=== PATIENT | male | born 1940 | race Caucasian/White ===

== ENCOUNTER → 2017-12-29 | Outpatient (CLI) | payer MEDICARE ==
[~2017-12-29] MED LIST: ACAR50TA PO; ALPR1TAB3 PO; AMLO5TAB22 PO; AMMO12CR10 TOP; APIX5TAB PO; AZEL0.05 NASAL; CARB25TA PO; CITA20TA4 PO; DAPA1TAB2; DAPA1TAB2 PO; DIGO0.12 PO; DIPH2%T PO; DOK100TA PO; GLIP5 PO; GLUC1000 PO; IRON325T2 PO; LISI-360 PO; METF500 PO; METO100T9 PO; PENI250T59 PO; PNEU13P IM; POLY119S PO; SIMV40 PO; SITA100 PO; SSD1CRE EX; SUBO8MIS SL; TRAZ50TA4 PO; TRUETEST STRIPS
--- NOTE | 2017-12-29 14:34 | RADRPT ---
EXAM DATE/TIME: 12/29/2017 14:07 [place] COMPARISON: No previous studies available for comparison. INDICATIONS : Dysphagia. FLUORO TIME: 2.4 minutes IMAGE COUNT: 3 CONTRAST: Dose as prescribed by speech pathologist. MEDICAL HISTORY : Stroke. SURGICAL HISTORY : None. ENCOUNTER: Initial ACUITY: >1 year PAIN SCORE: 0/10 LOCATION: esophagus FINDINGS: A modified barium swallow was performed with speech pathology. Patient was given a variety of liquids to swallow. Abnormal. Episodes of aspiration noted during swallowing of thin barium, thick barium, and barium fo ssa. For a full detailed report, see report by the speech pathologist. CONCLUSION: Aspiration is observed with multiple different consistencies of barium. Odell Alvarenga MD on December 29, 2017 at 14:29 Board Certified Radiologist. This report was verified electronically.
== END ==
LOC: HRAD 12-22 14:34
DX: R13.12 Dysphagia, oropharyngeal phase (principal)
CPT/HCPCS: 74230; 92611; G8996; G8997; G8998

== ENCOUNTER 2018-09-10 17:45 | Observation (INO) ==
[2018-09-10 18:55] LABS: Baso % (Auto) 0.5 % (0.0-2.0); Eos # (Auto) 0.1 th/mm3 (0.0-0.4); Eos % (Auto) 1.9 % (0.0-4.0); Hematocrit 33.1 % (39.0-51.0); Hemoglobin 11.5 gm/dL (13.0-17.0); Lymph # (Auto) 1.4 th/mm3 (1.0-4.8); Lymph % (Auto) 18.3 % (9.0-44.0); Mean Corpuscular HGB Conc 34.7 % (32.0-36.0); Mean Corpuscular Hemoglobin 32.1 pg (27.0-34.0); Mean Corpuscular Volume 92.5 fL (80.0-100.0); Mean Platelet Volume 8.9 fL (7.0-11.0); Mono # (Auto) 0.8 th/mm3 (0.0-0.9); Neut # (Auto) 5.2 th/mm3 (1.8-7.7); Neut % (Auto) 68.3 % (16.0-70.0); Platelet Count 153 th/mm3 (150-450); Red Blood Count 3.58 mil/mm3 (4.50-5.90); Red Cell Distribution Width 14.5 % (11.6-17.2); White Blood Count 7.6 th/mm3 (4.0-11.0)
--- NOTE | 2018-09-10 18:59 | XR ---
EXAM DATE: 09/10/2018 6:39 PM EST AGE/SEX: 78 years / Male INDICATIONS: Short of breath. CLINICAL DATA: This is the patient's initial encounter. Patient reports that signs and symptoms have been present for 1 day and indicates a pain score of 0/10. MEDICAL/SURGICAL HISTORY: Stroke. Non-responsive. COMPARISON: [facility], CHEST 1V SINGLE AP, 08/24/2018. . FINDINGS: A single AP view of the chest demonstrates the lungs to be symmetrically aerated without evidence of mass, infiltrate or effusion. The cardiomediastinal contours are unremarkable. Osseous structures a re intact. CONCLUSION: No evidence of acute cardiopulmonary disease. Electronically signed by: Donavan Rosales MD 09/10/2018 6:58 PM EST
[2018-09-10 19:07] LABS: Bilirubin,Urine Negative (Negative); Clarity,Urine Clear (Clear); Color,Urine Straw (Yellw/Straw); Glucose,Urine (UA) Negative (Negative); Leukocyte Esterase,Urine Negative (Negative); Nitrite,Urine Negative (Negative); Specific Gravity,Urine 1.006 (1.002-1.035); Squamous Epithelial Cell,Urine <1 /hpf (0-5)
[2018-09-10 19:14] LABS: Albumin 3.3 g/dL (3.4-5.0); Anion Gap 5 meq/L (5-15); Aspartate Aminotransferase 17 U/L (15-37); Blood Urea Nitrogen 29 mg/dL (7-18); Calcium 8.9 mg/dL (8.5-10.1); Carbon Dioxide 34.9 meq/L (21.0-32.0); Chloride 97 meq/L (98-107); Glomerular Filtration Rate 84 mL/min (>89); Glucose,Random 124 mg/dL (74-106); Potassium 3.6 meq/L (3.5-5.1); Sodium 137 meq/L (136-145)
--- NOTE | 2018-09-10 19:15 | ED ---
HPI General Chief Complaint: Respiratory Symptoms Stated Complaint: Resp Time Seen by Provider: 09/10/18 18:12 Source: EMS Mode of arrival: EMS Limitations: other (Advanced Alzheimer's) History of Present Illness 78-year-old male with PMH of HTN, HLD, DM T2, insulin-dependent, A. fib, on Eliquis, advanced Parkinson's, recent history of pneumonia resents to the ED from his [facility] for evaluation of worsening pulmonary function. On arrival the patient is alert and oriented x2. He states that he does not normally require oxygen. He denies headaches, dizziness, chest pain, palpitations, shortness of breath, cough, abdominal pain, nausea, vomiting. The patient has a G-tube and has a history of esophageal dysphagia, is not to receive any food by mouth. Per EMS report there was concern that the patient was given a breakfast tray. Per the EMS report the provider at the [facility] was concerned for aspiration pneumonia. Patient was recently hospitalized with PNA requiring intubation. Related Data Home Medications Medication Instructions Recorded Confirmed Lactobacillus rhamnosus GG 1 cap FEEDING TUBE DAILY 09/10/18 09/10/18 [Culturelle] acetaminophen [Tylenol] 650 mg FEEDING TUBE Q4H PRN 09/10/18 09/10/18 buprenorphine-naloxone [Suboxone] 1 film BUCCAL Q12HR 09/10/18 09/10/18 carbidopa-levodopa 2 tab G-TUBE Q12HR 09/10/18 09/10/18 insulin aspart U-100 [Novolog 0 - 10 unit SUBCUT ACHS 09/10/18 09/10/18 U-100 Insulin aspart] Previous Rx's Medication Instructions Recorded amlodipine [Norvasc] 5 mg FEEDING TUBE DAILY #30 tab 08/29/18 apixaban 5 mg FEEDING TUBE Q12HR #60 tab 08/29/18 atorvastatin 20 mg FEEDING TUBE HS #30 tab 08/29/18 chlorhexidine gluconate 10 ml OROPHARYNG TID 30 Days ml 08/29/18 digoxin [Lanoxin] 0.125 mg FEEDING TUBE DAILY #30 tab 08/29/18 diphenhydramine HCl 50 mg G-TUBE HS PRN 30 Days ml 08/29/18 famotidine 20 mg FEEDING TUBE BID #60 tab 08/29/18 guaifenesin 200 mg G-TUBE Q6HR 30 Days ml 10/24/18 guar gum [Nutrisource Fiber] 1 packet G-TUBE BID #60 ea 08/29/18 insulin detemir U-100 [Levemir 45 unit SUBCUT HS 30 Days #13.5 ml 08/29/18 U-100 Insulin] insulin detemir U-100 [Levemir 50 unit SUBCUT DAILY@09 30 Days 08/29/18 U-100 Insulin] #15 ml ipratropium-albuterol 1 amp NEB Q2HR NEB PRN #10 amp 08/29/18 ipratropium-albuterol 3 ml INHALATION QID #120 amp 08/29/18 metoprolol tartrate 50 mg FEEDING TUBE Q12HR #60 tab 08/29/18 Allergies Allergy/AdvReac Type Severity Reaction Status Date / Time carisoprodol Allergy Severe LIGHT Verified 09/10/18 18:07 HEADEDNESS cyclobenzaprine AdvReac Confusion Verified 09/10/18 18:07 [From Flexeril] Review of Systems ROS: all other systems reviewed are negative [facility] Social History Social History Substance History: No History of Abuse Second Hand Smoke Exposure: No Smoking Status: Unknown if ever smoked Tobacco Type: Cigarettes Packs Per Day: 1 Cigarettes Per Day: 20.0 Years Smoked: 12 Pack-Years: 12.00 Number of Pack-Years (if former smoker): 12 How Often Do You Have a Drink Containing Alcohol: Unable to Obtain Hx Recent Travel: No Recent Travel in [facility] within the Last 8 Weeks: No Recent Out of Country Travel within the Last 8 Weeks: No Immunization History Tetanus Immunization: Unsure Exam Narrative Exam Narrative: GENERAL: Thin white male, eyes closed, Parkinsonian affect, arouses to voice. SKIN: Focused skin assessment warm/dry. HEAD: Atraumatic. Normocephalic. EYES: Pupils equal and round. No scleral icterus. No injection or drainage. ENT: No nasal bleeding or discharge. Mucous membranes pink and moist. NECK: Trachea midline. No JVD. CARDIOVASCULAR: Irregularly irregular rate and rhythm. No murmur appreciated. RESPIRATORY: Poor respiratory effort. Diminished sounds in the left lung. Right lung clear to auscultation. GASTROINTESTINAL: Abdomen soft, non-tender, nondistended. Hepatic and splenic margins not palpable. G-tube in place, well-healed and without signs of infection. MUSCULOSKELETAL: No obvious deformities. No clubbing. No cyanosis. No edema. NEUROLOGICAL: Awake. Answers questions appropriately. No motion of the extremities. PSYCHIATRIC: cooperative, calm Course Initial Documented Vital Signs Temperature 98.4 F 09/10/18 18:08 Pulse Rate 83 09/10/18 18:08 Respiratory Rate 16 09/10/18 18:08 Blood Pressure 139/67 09/10/18 18:08 Pulse Oximetry 93 L 09/10/18 18:08 Last Documented Vital Signs Temperature 98.4 F 09/10/18 18:08 Pulse Rate 82 09/10/18 19:47 Respiratory Rate 18 09/10/18 19:47 Blood Pressure 117/63 09/10/18 19:47 Pulse Oximetry 96 09/10/18 19:47 Medical Decision Making ROEL Attestation ROEL supervised visit: Yes Attestation: I, Dr. Flannery, have reviewed the advance practice practitioner's documentation and am in agreement, met with the patient face to face, made the diagnosis, and the medical decision making was done by me. The patient was initially evaluated by Maritza, the ROEL. Please see their complete history and physical. *My assessment and Findings: The patient presents with shortness of breath. Patient has a history of aspiration pneumonia with recent admission. According to the patient's family member at the bedside, the patient was fed by a EMPLOYMENT SERVICE SPECIALIST on Monday morning by mouth. The patient reportedly is only receiving nutrition through a G-tube, however this patient's EMPLOYMENT SERVICE SPECIALIST was not aware. The patient received a whole breakfast of eggs prior to the family being made aware that the patient was being fed orally. Patient since then has had increasing shortness of breath. The patient's examination is remarkable for decreased air movement in bilateral lung botello with diminished breath sounds bilaterally. The patient is noted to be in A. fib that is generally rate controlled, however with brief episodes at the bedside of a heart rate above 100 but less than 110. The patient is noted to have swelling of the left leg compared to the right which the family reports that they are unaware of being present previously. The patient is anticoagulated on Eliquis. During the course of the patient's emergency department visit, the patient's history, examination, and differential diagnosis were reviewed with the patient. The patient was placed on a cardiac cath technologist with oximetry and frequent blood pressure monitoring. The patient had IV access obtained and blood work sent for analysis. The patient was placed on supplemental nasal cannula oxygen. The patient's diagnostic studies were reviewed and remarkable for a white count of 7.6, hemoglobin 11.5, platelets 153 with 11 monocytes chloride of 97, bicarb 34.9, BUN 29, GFR of 84, glucose 124, ALT 11. Troponin I is less than 0.02. Albumin 3.3 urinalysis shows no acute abnormality. The patient's chest x-ray was read as showing no evidence of acute cardiopulmonary disease. BNP within normal limits. Ultrasound reveals a left lower extremity DVT. The patient's results were discussed with the patient, including the plan of care. I explained that further testing and/ or monitoring is indicated based on the patient's history, examination, and/ or laboratory findings. Therefore, I recommended admission for additional evaluation. The patient expressed understanding and was agreeable with this plan. The patient was admitted to the hospital in stable condition and sent to a bed under the care of [facility] service. MDM Narrative Medical decision making narrative: 78-year-old male with PMH of advanced Parkinson's, hypertension, DM, A. fib, esophageal dysphasia presents to the ED for evaluation of decreased respiratory functioning over the last 24 hours. Apparently a EMPLOYMENT SERVICE SPECIALIST at his [facility] fed him a dinner though he is restricted to tube feeding. The practitioner at the [facility] noticed the patient's declining respiratory function and sent him for evaluation. On exam O2 sats are 92% on room air, improved by 2 L nasal cannula. The O respiratory effort is weak and the left side lung sounds are greatly diminished as compared to the right. Chest x-ray with no evidence of pneumonia. Patient's family reports history of hospitalization secondary to aspiration pneumonia requiring intubation. Plan to observe the patient. Family is agreeable. I spoke with Dr. Iglesias who agrees to accept the patient to the medicine service. Please see medicine notes for disposition. Medical Screen Exam Complete: Yes Emergency Medical Condition: Yes Differential Diagnosis Differential Diagnosis: Aspiration versus pneumonia versus hypoxia versus A. fib versus other Lab Data Result diagrams: 09/10/18 18:20 09/10/18 18:20 Lab Results 09/10/18 09/10/18 09/10/18 Range/Units 18:20 18:20 18:20 WBC 7.6 (4.0-11.0) th/mm3 RBC 3.58 L (4.50-5.90) mil/mm3 Hgb 11.5 L (13.0-17.0) gm/dL Hct 33.1 L (39.0-51.0) % MCV 92.5 (80.0-100.0) fL MCH 32.1 (27.0-34.0) pg MCHC 34.7 (32.0-36.0) % RDW 14.5 (11.6-17.2) % Plt Count 153 (150-450) th/mm3 MPV 8.9 (7.0-11.0) fL Neut % (Auto) 68.3 (16.0-70.0) % Lymph % (Auto) 18.3 (9.0-44.0) % [place] % (Auto) 11.0 H (0.0-8.0) % Eos % (Auto) 1.9 (0.0-4.0) % Baso % (Auto) 0.5 (0.0-2.0) % Neut # (Auto) 5.2 (1.8-7.7) th/mm3 Lymph # (Auto) 1.4 (1.0-4.8) th/mm3 [place] # (Auto) 0.8 (0.0-0.9) th/mm3 Eos # (Auto) 0.1 (0.0-0.4) th/mm3 Baso # (Auto) 0.0 (0.0-0.2) th/mm3 WBC Differential . Differential Comment Auto diff final PT (9.8-11.6) sec INR Ratio Sodium 137 (136-145) meq/L Potassium 3.6 (3.5-5.1) meq/L Chloride 97 L (98-107) meq/L Carbon Dioxide 34.9 H (21.0-32.0) meq/L Anion Gap 5 (5-15) meq/L BUN 29 H (7-18) mg/dL Creatinine 0.88 (0.60-1.30) mg/dL Estimated GFR 84 L (>89) mL/min Random Glucose 124 H (74-106) mg/dL Calcium 8.9 (8.5-10.1) mg/dL Total Bilirubin 0.4 (0.2-1.0) mg/dL AST 17 (15-37) U/L ALT 11 L (12-78) U/L Alkaline Phosphatase 78 (45-117) U/L Troponin I Less than 0.02 L (0.02-0.05) ng/mL B-Natriuretic Peptide 72 (0-100) pg/mL Total Protein 8.2 (6.4-8.2) g/dL Albumin 3.3 L (3.4-5.0) g/dL Urine Color (Yellw/Straw) Urine Clarity (Clear) Urine pH (5.0-8.5) Ur Specific [place] (1.002-1.035) Urine Protein (Neg-Trace) mg/dL Urine Glucose (UA) (Negative) mg/dL Urine Ketones (Negative) mg/dL Urine Occult Blood (Negative) Urine Nitrate (Negative) Urine Bilirubin (Negative) Urine Urobilinogen (Less than 2) mg/dL Ur Leukocyte Esterase (Negative) Urine WBC (0-5) /hpf Ur Squamous Epith Cells (0-5) /hpf Micro UA Comment Ur Microscopic Review Urine Culture Comments 09/10/18 09/10/18 Range/Units 18:37 19:44 WBC (4.0-11.0) th/mm3 RBC (4.50-5.90) mil/mm3 Hgb (13.0-17.0) gm/dL Hct (39.0-51.0) % MCV (80.0-100.0) fL MCH (27.0-34.0) pg MCHC (32.0-36.0) % RDW (11.6-17.2) % Plt Count (150-450) th/mm3 MPV (7.0-11.0) fL Neut % (Auto) (16.0-70.0) % Lymph % (Auto) (9.0-44.0) % [place] % (Auto) (0.0-8.0) % Eos % (Auto) (0.0-4.0) % Baso % (Auto) (0.0-2.0) % Neut # (Auto) (1.8-7.7) th/mm3 Lymph # (Auto) (1.0-4.8) th/mm3 [place] # (Auto) (0.0-0.9) th/mm3 Eos # (Auto) (0.0-0.4) th/mm3 Baso # (Auto) (0.0-0.2) th/mm3 WBC Differential Differential Comment PT 10.4 (9.8-11.6) sec INR 1.0 Ratio Sodium (136-145) meq/L Potassium (3.5-5.1) meq/L Chloride (98-107) meq/L Carbon Dioxide (21.0-32.0) meq/L Anion Gap (5-15) meq/L BUN (7-18) mg/dL Creatinine (0.60-1.30) mg/dL Estimated GFR (>89) mL/min Random Glucose (74-106) mg/dL Calcium (8.5-10.1) mg/dL Total Bilirubin (0.2-1.0) mg/dL AST (15-37) U/L ALT (12-78) U/L Alkaline Phosphatase (45-117) U/L Troponin I (0.02-0.05) ng/mL B-Natriuretic Peptide (0-100) pg/mL Total Protein (6.4-8.2) g/dL Albumin (3.4-5.0) g/dL Urine Color Straw (Yellw/Straw) Urine Clarity Clear (Clear) Urine pH 7.0 (5.0-8.5) Ur Specific [place] 1.006 (1.002-1.035) Urine Protein Negative (Neg-Trace) mg/dL Urine Glucose (UA) Negative (Negative) mg/dL Urine Ketones Negative (Negative) mg/dL Urine Occult Blood Negative (Negative) Urine Nitrate Negative (Negative) Urine Bilirubin Negative (Negative) Urine Urobilinogen Less than 2 (Less than 2) mg/dL Ur Leukocyte Esterase Negative (Negative) Urine WBC Less than 1 (0-5) /hpf Ur Squamous Epith Cells <1 (0-5) /hpf Micro UA Comment Culture not ind Ur Microscopic Review Not Reportable Urine Culture Comments Culture not ind Imaging Data Radiologist's impression: Chest X-Ray 09/10/18 18:12 CONCLUSION: No evidence of acute cardiopulmonary disease. Venous Doppler Study 09/10/18 19:33 CONCLUSION: 1. No sonographic evidence for left lower extremity DVT. ECG Data Attestation: I personally reviewed and interpreted this ECG as follows: Interpretation: Rate 82, A. fib. Normal axis. No acute ST changes. Reviewed by Dr. Flannery. Discharge Plan Discharge Disposition Patient Disposition: 30 Still Patient Physicians Team ED Provider: Reina Flannery ED Midlevel Provider: Maritza Gottlieb Primary Care Provider: Usman Albarran Attending Provider: Edgar Iglesias Discharge Interventions Interventions: Vital Signs Last Done: 09/10/18 19:47 Status ED Status: Admitted Observation Patient
[2018-09-10 19:19] LABS: Alanine Aminotransferase 11 U/L (12-78); Alkaline Phosphatase 78 U/L (45-117); Total Protein 8.2 g/dL (6.4-8.2)
[2018-09-10 20:14] LABS: Prothrombin Time 10.4 sec (9.8-11.6)
--- NOTE | 2018-09-10 20:35 | US ---
EXAM DATE: 09/10/2018 8:29 PM EST AGE/SEX: 78 years / Male INDICATIONS: Left leg swelling. CLINICAL DATA: This is the patient's initial encounter. Patient reports that signs and symptoms have been present for 1 day and indicates a pain score of Nonresponsive. MEDICAL/SURGICAL HISTORY: Parkinson's disease. Diabetes mellitus type II. AFib. Hyperlipidemia . HTN. Esophageal dysphagia. Cholecystectomy. Right knee surgery. COMPARISON: No prior exams available for comparison. TECHNIQUE: Venous ultrasound of both lower extremities was performed from the inguinal ligament to t he proximal calf. Real-time, color Doppler and spectral tracing, compression and augmentation techni ques were used. FINDINGS: Normal compression of the deep venous system from the inguinal region to the proximal calf . No echogenic clot is seen. Normal response of the venous system to augmentation and respiration. CONCLUSION: 1. No sonographic evidence for left lower extremity DVT. Electronically signed by: Germán Murrieta MD 09/10/2018 8:33 PM EST
[2018-09-10] MEDS ORDERED: diphenhydrAMINE HCl 12.5 MG/5 ML Elixir UDC G-TUBE PRN (22:14)
[2018-09-10] MEDS ORDERED: Bisacodyl 10 MG Supp RECTAL PRN (22:21)
--- NOTE | 2018-09-10 23:04 | P.HPIM ---
History of Present Illness Service: [facility] Primary Care Physician: Usman Albarran DO History of Present Illness: 78-year-old male with a history of hypertension, diabetes, A. fib on anticoagulation, hyperlipidemia, Parkinson's and esophageal dysphagia was brought to the ED from a rehab facility for evaluation for aspiration pneumonia. Apparently patient only eats via his PEG tube and a ROAD COMMISSIONER at the facility fed him a breakfast tray this morning and the facility was concerned for Aspiration. He was recently admitted for pneumonia in August. Patient is sleepy on examination, ROS is limited due to mentation. He has a lot of bronchial secretions and he doesn't seem to clear them at all. He denies any chest pain. Per the nurse he has not had any complaints. No fevers noted. Review of Systems ROS Unobtainable ROS Unobtainable: unobtainable due to mental condition [facility] Medical History Medical History A-fib (Acute) Esophageal dysphagia (Acute) Hyperlipidemia (Acute) Hypertension (Acute) Insulin dependent type 2 diabetes mellitus (Acute) Parkinsons (Acute) Surgical History Surgical History History of cholecystectomy (Acute) History of right knee surgery (Acute) Family History Family History Father Coronary artery disease Mother Stroke Skin cancer Type 2 diabetes mellitus Social History Social History Substance History: No History of Abuse Second Hand Smoke Exposure: No Smoking Status: Never smoker Tobacco Type: Cigarettes Packs Per Day: 1 Cigarettes Per Day: 20.0 Years Smoked: 12 Pack-Years: 12.00 Number of Pack-Years (if former smoker): 12 How Often Do You Have a Drink Containing Alcohol: Never Hx Recent Travel: No Recent Travel in [place] within the Last 8 Weeks: No Recent Out of Country Travel within the Last 8 Weeks: No Immunization History Tetanus Immunization: Unsure Medications and Allergies Allergies Allergy/AdvReac Type Severity Reaction Status Date / Time carisoprodol Allergy Severe LIGHT Verified 09/10/18 18:07 HEADEDNESS cyclobenzaprine AdvReac Confusion Verified 09/10/18 18:07 [From Flexeril] Home Medications Medication Instructions Recorded Confirmed Type Lactobacillus rhamnosus GG 1 cap FEEDING TUBE DAILY 09/10/18 09/10/18 History [Culturelle] acetaminophen [Tylenol] 650 mg FEEDING TUBE Q4H PRN 09/10/18 09/10/18 History buprenorphine-naloxone [Suboxone] 1 film BUCCAL Q12HR 09/10/18 09/10/18 History carbidopa-levodopa 2 tab G-TUBE Q12HR 09/10/18 09/10/18 History insulin aspart U-100 [Novolog 0 - 10 unit SUBCUT ACHS 09/10/18 09/10/18 History U-100 Insulin aspart] Active Medications: Active Medications Al Hydroxide/Mg Hydroxide (Milk Of Magnesia Liq) 30 ml PO Q12H PRN PRN Reason: Mild Constipation Albuterol (Duoneb Neb ([place])) 1 ampul INH QID NEB MALIA Albuterol (Duoneb Neb (Prn)) 1 ampul NEB Q2HR NEB PRN PRN Reason: Shortness Of Breath/Wheezing Amlodipine Besylate (Norvasc) 5 mg G-TUBE DAILY [facility] Apixaban (Eliquis) 5 mg G-TUBE Q12HR [facility] Atorvastatin Calcium (Lipitor) 20 mg G-TUBE HS [facility] Bisacodyl (Dulcolax Supp) 10 mg RECTAL DAILY PRN PRN Reason: SEVERE CONSITIPATION Carbidopa/Levodopa (Sinemet 25/100 Mg) 2 tab G-TUBE Q12HR [facility] Digoxin (Lanoxin) 125 mcg G-TUBE DAILY [facility] Diphenhydramine HCl (Benadryl Liq) 50 mg G-TUBE HS PRN PRN Reason: Insomnia Famotidine (Pepcid) 20 mg G-TUBE BID [facility] Guaifenesin (Robitussin Liq) 200 mg G-TUBE Q6HR [facility] Sodium Chloride (Ns Inj) 1,000 mls @ 45 mls/hr IV.CONT .[id number] [facility] Insulin Aspart (Novolog Insulin Correctional Sugar Inj) 0 - 10 unit SQ ACHS [facility] Insulin Detemir (Levemir Inj) 45 unit SQ HS [facility] Insulin Detemir (Levemir Inj) 50 unit SQ DAILY@09 [facility] Lactulose (Lactulose Liq) 30 ml PO DAILY PRN PRN Reason: SEVERE CONSITIPATION Metoprolol Tartrate (Lopressor) 50 mg G-TUBE Q12HR [facility] Patient Own Medication (Patient Own Narcotic Med 1) 0 each SL BID MALIA Sennosides (Senokot) 17.2 mg PO Q12H PRN PRN Reason: Moderate Constipation Physical Exam Vital signs: Last Vital Signs Temp 98.4 F 09/10/18 18:08 Pulse 82 09/10/18 19:47 Resp 18 09/10/18 19:47 BP 117/63 09/10/18 19:47 Pulse Ox 96 09/10/18 19:47 Intake & Output 09/08/18 09/09/18 09/10/18 09/11/18 07:59 06:59 06:59 06:59 Weight 77.111 kg Narrative: GENERAL: Sleepy patient, well nourished in no acute distress SKIN: Warm and dry. No open lesions EYES: No scleral icterus. No injection or drainage. NECK: Supple, trachea midline. No JVD or lymphadenopathy. CARDIOVASCULAR: Regular rate and rhythm without murmurs, gallops, or rubs. RESPIRATORY: Bronchial secretions noted in upper airway, bases diminished, no wheezes GASTROINTESTINAL: Abdomen soft, non-tender, nondistended. BS x4 MUSCULOSKELETAL: No cyanosis, or edema. Move all extremities Assessment and Plan Plan 78-year-old male with a history of hypertension, diabetes, A. fib on anticoagulation, hyperlipidemia, Parkinson's and esophageal dysphagia was brought to the ED from a rehab facility for evaluation for aspiration pneumonia. Possible aspiration pneumonia Chest x-ray reviewed and shows no acute abnormalities -Duonebs scheduled -Empirically treat with Unasyn IV, deescalate in am if needed -Suction as needed -IS ordered Hypertension, chronic -Resume home medications medications, monitor vitals Diabetes,Chronic -Accu checks -Cont home medications Afib, chronic -Monitor telemetry -cont home medications Esophageal dysphagia, chronic -Tube feeds via PEG tube DVT prophylaxis: Eliquis
[2018-09-11] MEDS: Metoprolol Tartrate 50 MG Tablet G-TUBE SCH ×3 (00:02→21:14)
[2018-09-11] MEDS: Famotidine 20 MG Tablet G-TUBE SCH ×3 (00:02→21:13)
[2018-09-11] MEDS: Sod Chloride 0.9% Inj 1,000 ML IV.CONT SCH ×2 (00:02→22:29)
[2018-09-11] MEDS ORDERED: Sodium Chloride 0.9% 2 ML Flush PRN IV.FLUSH (00:18)
[2018-09-11] MEDS: Ampicillin/Sulbactam Inj 3 GM in Sodium Chloride 0.9% Inj 100 ML IV.SIG SCH ×5 (00:23→23:35)
--- NOTE | 2018-09-11 05:13 | ECG ---
Date Performed: 09/10/2018 Time Performed: 19:54:38 PTAGE: 78 years EKG: ATRIAL FIBRILLATION MINIMAL ST DEPRESSION ABNORMAL RHYTHM ECG NO PREVIOUS TRACING DOCTOR: Benjie Branch Interpretating Date/Time 09/11/2018 05:11:49
[2018-09-11 09:28] LABS: Baso % (Auto) 0.4 % (0.0-2.0); Eos # (Auto) 0.1 th/mm3 (0.0-0.4); Eos % (Auto) 0.7 % (0.0-4.0); Hematocrit 34.7 % (39.0-51.0); Hemoglobin 11.9 gm/dL (13.0-17.0); Lymph # (Auto) 1.4 th/mm3 (1.0-4.8); Mean Corpuscular HGB Conc 34.3 % (32.0-36.0); Mean Corpuscular Hemoglobin 31.7 pg (27.0-34.0); Mean Corpuscular Volume 92.5 fL (80.0-100.0); Mean Platelet Volume 8.5 fL (7.0-11.0); Mono # (Auto) 0.9 th/mm3 (0.0-0.9); Neut # (Auto) 7.7 th/mm3 (1.8-7.7); Neut % (Auto) 75.9 % (16.0-70.0); Platelet Count 140 th/mm3 (150-450); Red Blood Count 3.76 mil/mm3 (4.50-5.90); Red Cell Distribution Width 14.3 % (11.6-17.2); White Blood Count 10.2 th/mm3 (4.0-11.0)
[2018-09-11] MEDS: Insulin NovoLOG Aspart Correctional Sugar Inj SQ SCH ×4 (09:35→21:15)
[2018-09-11 09:47] LABS: Albumin 3.2 g/dL (3.4-5.0); Anion Gap 9 meq/L (5-15); Aspartate Aminotransferase 21 U/L (15-37); Blood Urea Nitrogen 24 mg/dL (7-18); Calcium 8.8 mg/dL (8.5-10.1); Carbon Dioxide 28.9 meq/L (21.0-32.0); Chloride 101 meq/L (98-107); Glomerular Filtration Rate Greater Than 89 mL/min (>89); Glucose,Random 86 mg/dL (74-106); Sodium 139 meq/L (136-145)
[2018-09-11 09:48] LABS: Alanine Aminotransferase 21 U/L (12-78)
[2018-09-11 09:50] LABS: Alkaline Phosphatase 78 U/L (45-117)
[2018-09-11] MEDS: Digoxin 125 MCG Tablet G-TUBE SCH (11:10)
[2018-09-11] MEDS: amLODIPine 5 MG Tablet G-TUBE SCH (11:10)
[2018-09-11] MEDS: Sodium Chloride 0.9% 2 ML Flush BID IV.FLUSH SCH ×2 (11:11→21:14)
--- NOTE | 2018-09-11 11:12 | P.DIET ---
Nutritional Evaluation Type of nutrition evaluation: initial Nutrition consult regarding: Tube Feeding Nutrition screening: [facility] Subjective Barriers to Nutrition: Swallowing problem Subjective Comments: Pt here from [facility]. Pt has PEG tube in place; no po intake. Objective - Diagnosis Hypoxia, Possible Aspiration Pneumonia - Objective [place] body weight: 75.5 kg (HT 177.8cm from previous admission used here) % IBW: 102 Body Weight Used for Calculations: Actual (77.1 kg) Energy Needs - Lower Range (kCal/kg): 25 Energy Needs - Upper Range (kCal/kg): 30 Lower Limit kCal/kg (kCals): 1,928 Upper Limit kCal/kg (kCals): 2,313 Lower Limit Protein Factor (Grams per Kg): 1.2 Upper Limit Protein Factor (Grams per Kg): 1.6 Lower Protein Needs (Protein): 93 Upper Protein Needs (Protein): 123 Fluid Factor (ml/kg): 30 Estimated Fluid Needs (ml): 2,313 Dietitian Reviewed in Medical Record: Curent medications, Intake & Output, Labs , Medical history, Tube feeding Diet Order: TF'ing Glucerna 1.0 @ 60ml/hr Objective Comments: PMH includes: AFib, Esophageal Dysphagia, PEG tube in place, HLD, HTN, Insulin dependent DM-2, Parkinson's POC Glucose 102 Meds Include: Norvasc, Lipitor, Sinemet, Lanoxin, Pepcid, Metoprolol, Novolog, Levemir Assessment Assessment: Pt is at nutritional risk r/t diagnosis and need for TF'ing for nutritional support. TF'ing, as ordered, will not provide for pt's assessed needs. Rec TF' ing w/Glucerna 1.5 @ goal rate 60ml/hr to offer 2160 kcal, 119g protein and 1093ml free water. Free water flushes per MD. Labs reviewed. Dietitian following. Recommendations: 1. TF'ing, as ordered, will not provide for pt's assessed needs 2. Rec TF'ing w/Glucerna 1.5 @ goal rate 60ml/hr 3. Free water flushes per MD 4. Dietitian following Dietitian to Monitor: Lab values, Electrolytes, Glucose level, Intake & Output, Tube feeding tolerance, Weight change, Medical course
[2018-09-11] MEDS: Insulin Detemir Inj 1,000 UNIT/10 ML Vial SQ SCH (11:47)
--- NOTE | 2018-09-11 12:39 | P.PNIM ---
Subjective Interval history: Patient seen and examined. Stable on room air. He does have some upper airway congestion sounds. Discussed with RN. No new issues. Physical Exam Vital signs: Vital Signs 09/10/18 18:08 09/10/18 18:12 09/10/18 19:47 Temperature 98.4 F Pulse Rate 83 82 Respiratory Rate 16 18 Blood Pressure 139/67 117/63 Pulse Oximetry 93 L 93 L 96 09/10/18 23:27 09/11/18 04:00 09/11/18 05:49 Temperature 98.4 F 98.4 F Pulse Rate 95 H 93 H 98 H Respiratory Rate 18 18 18 Blood Pressure 151/69 H 157/82 H Pulse Oximetry 95 96 95 09/11/18 07:30 09/11/18 08:15 09/11/18 12:15 Temperature 98.0 F Pulse Rate 93 H 102 H 83 Respiratory Rate 20 22 20 Blood Pressure 141/66 H Pulse Oximetry 95 95 09/11/18 12:24 Temperature 98.5 F Pulse Rate 79 Respiratory Rate 18 Blood Pressure 130/66 Pulse Oximetry 91 L Intake & Output 09/10/18 09/11/18 09/11/18 18:59 06:59 18:59 Intake Total 100 / 100 200 / 200 Balance 100 / 100 200 / 200 Weight 77.111 kg 77.1 kg Intake: IV 100 / 100 200 / 200 Unasyn Inj 3 GM In NS Inj 100 100 / 100 200 / 200 ML @ 200 mls/hr IV.SIG Q6H [facility] Rx#:[id number] Narrative: GENERAL: Elderly male in no acute distress. NECK: Supple, trachea midline. No JVD or lymphadenopathy. CARDIOVASCULAR: Regular rate and rhythm without murmurs, gallops, or rubs. RESPIRATORY: Upper airway transmitted rhonchi. Diminished breath sounds at the bases otherwise generally clear to auscultation. No wheezing. GASTROINTESTINAL: Abdomen soft, non-tender, nondistended. PEG in place MUSCULOSKELETAL: No cyanosis, or edema. Move all extremities Results - Labs CBC & Chem 7: 09/11/18 09:05 09/11/18 09:05 Laboratory Results - last 24 hr 09/10/18 09/10/18 09/10/18 18:20 18:20 18:20 WBC 7.6 RBC 3.58 L Hgb 11.5 L Hct 33.1 L MCV 92.5 MCH 32.1 MCHC 34.7 RDW 14.5 Plt Count 153 MPV 8.9 Neut % (Auto) 68.3 Lymph % (Auto) 18.3 [place] % (Auto) 11.0 H Eos % (Auto) 1.9 Baso % (Auto) 0.5 Neut # (Auto) 5.2 Lymph # (Auto) 1.4 [place] # (Auto) 0.8 Eos # (Auto) 0.1 Baso # (Auto) 0.0 WBC Differential . Differential Comment Auto diff final PT INR Sodium 137 Potassium 3.6 Chloride 97 L Carbon Dioxide 34.9 H Anion Gap 5 BUN 29 H Creatinine 0.88 Estimated GFR 84 L POC Glucose Random Glucose 124 H Calcium 8.9 Total Bilirubin 0.4 AST 17 ALT 11 L Alkaline Phosphatase 78 Troponin I Less than 0.02 L B-Natriuretic Peptide 72 Total Protein 8.2 Albumin 3.3 L Urine Color Urine Clarity Urine pH Ur Specific [place] Urine Protein Urine Glucose (UA) Urine Ketones Urine Occult Blood Urine Nitrate Urine Bilirubin Urine Urobilinogen Ur Leukocyte Esterase Urine WBC Ur Squamous Epith Cells Micro UA Comment Ur Microscopic Review Urine Culture Comments 09/10/18 09/10/18 09/11/18 18:37 19:44 05:46 WBC RBC Hgb Hct MCV MCH MCHC RDW Plt Count MPV Neut % (Auto) Lymph % (Auto) [place] % (Auto) Eos % (Auto) Baso % (Auto) Neut # (Auto) Lymph # (Auto) [place] # (Auto) Eos # (Auto) Baso # (Auto) WBC Differential Differential Comment PT 10.4 INR 1.0 Sodium Potassium Chloride Carbon Dioxide Anion Gap BUN Creatinine Estimated GFR POC Glucose 74 Random Glucose Calcium Total Bilirubin AST ALT Alkaline Phosphatase Troponin I B-Natriuretic Peptide Total Protein Albumin Urine Color Straw Urine Clarity Clear Urine pH 7.0 Ur Specific [place] 1.006 Urine Protein Negative Urine Glucose (UA) Negative Urine Ketones Negative Urine Occult Blood Negative Urine Nitrate Negative Urine Bilirubin Negative Urine Urobilinogen Less than 2 Ur Leukocyte Esterase Negative Urine WBC Less than 1 Ur Squamous Epith Cells <1 Micro UA Comment Culture not ind Ur Microscopic Review Not Reportable Urine Culture Comments Culture not ind 09/11/18 09/11/18 09/11/18 09:05 09:05 09:28 WBC 10.2 RBC 3.76 L Hgb 11.9 L Hct 34.7 L MCV 92.5 MCH 31.7 MCHC 34.3 RDW 14.3 Plt Count 140 L MPV 8.5 Neut % (Auto) 75.9 H Lymph % (Auto) 14.0 [place] % (Auto) 9.0 H Eos % (Auto) 0.7 Baso % (Auto) 0.4 Neut # (Auto) 7.7 Lymph # (Auto) 1.4 [place] # (Auto) 0.9 Eos # (Auto) 0.1 Baso # (Auto) 0.0 WBC Differential . Differential Comment Auto diff final PT INR Sodium 139 Potassium 4.0 Chloride 101 Carbon Dioxide 28.9 Anion Gap 9 BUN 24 H Creatinine 0.79 Estimated GFR Greater than 89 POC Glucose 102 Random Glucose 86 Calcium 8.8 Total Bilirubin 0.5 AST 21 ALT 21 Alkaline Phosphatase 78 Troponin I B-Natriuretic Peptide Total Protein 8.0 Albumin 3.2 L Urine Color Urine Clarity Urine pH Ur Specific [place] Urine Protein Urine Glucose (UA) Urine Ketones Urine Occult Blood Urine Nitrate Urine Bilirubin Urine Urobilinogen Ur Leukocyte Esterase Urine WBC Ur Squamous Epith Cells Micro UA Comment Ur Microscopic Review Urine Culture Comments 09/11/18 11:45 WBC RBC Hgb Hct MCV MCH MCHC RDW Plt Count MPV Neut % (Auto) Lymph % (Auto) [place] % (Auto) Eos % (Auto) Baso % (Auto) Neut # (Auto) Lymph # (Auto) [place] # (Auto) Eos # (Auto) Baso # (Auto) WBC Differential Differential Comment PT INR Sodium Potassium Chloride Carbon Dioxide Anion Gap BUN Creatinine Estimated GFR POC Glucose 118 H Random Glucose Calcium Total Bilirubin AST ALT Alkaline Phosphatase Troponin I B-Natriuretic Peptide Total Protein Albumin Urine Color Urine Clarity Urine pH Ur Specific [place] Urine Protein Urine Glucose (UA) Urine Ketones Urine Occult Blood Urine Nitrate Urine Bilirubin Urine Urobilinogen Ur Leukocyte Esterase Urine WBC Ur Squamous Epith Cells Micro UA Comment Ur Microscopic Review Urine Culture Comments - Imaging Impressions Chest X-Ray 09/10/18 18:12 CONCLUSION: No evidence of acute cardiopulmonary disease. Venous Doppler Study 09/10/18 19:33 CONCLUSION: 1. No sonographic evidence for left lower extremity DVT. Assessment and Plan - Plan 78-year-old male with a history of hypertension, diabetes, A. fib on anticoagulation, hyperlipidemia, Parkinson's and esophageal dysphagia was brought to the ED from a rehab facility for evaluation for aspiration pneumonia. Possible aspiration pneumonia Chest x-ray reviewed and shows no acute abnormalities -Duonebs scheduled -Continue empiric treatment with Unasyn IV, repeat chest x-ray in AM. If no development of infiltrates DC abx vs switch to oral. -Suction as needed -IS ordered Hypertension, chronic -Continue home medications medications, monitor vitals Diabetes,Chronic -Accu checks -Cont home medications Afib, chronic -Monitor telemetry -cont home medications Esophageal dysphagia, chronic -Tube feeds via PEG tube DVT prophylaxis: Eliquis Discharge Planning: Possible DC back to rehab facility in AM
[2018-09-11] MEDS ORDERED: Morphine Sulfate Oral Liq 10 MG/0.5 ML Syringe PO PRN (16:14)
[2018-09-11] MEDS ORDERED: Insulin Detemir Inj 1,000 UNIT/10 ML Vial SQ SCH (21:00)
[2018-09-12] MEDS: Ampicillin/Sulbactam Inj 3 GM in Sodium Chloride 0.9% Inj 100 ML IV.SIG SCH ×4 (05:15→18:00)
[2018-09-12 07:10] LABS: Hematocrit 31.5 % (39.0-51.0); Hemoglobin 10.7 gm/dL (13.0-17.0); Mean Corpuscular HGB Conc 34.1 % (32.0-36.0); Mean Corpuscular Hemoglobin 31.4 pg (27.0-34.0); Mean Corpuscular Volume 92.2 fL (80.0-100.0); Mean Platelet Volume 9.1 fL (7.0-11.0); Platelet Count 134 th/mm3 (150-450); Red Blood Count 3.41 mil/mm3 (4.50-5.90); Red Cell Distribution Width 14.4 % (11.6-17.2); White Blood Count 9.1 th/mm3 (4.0-11.0)
--- NOTE | 2018-09-12 08:05 | XR ---
EXAM DATE: 09/12/2018 7:54 AM EST AGE/SEX: 78 years / Male INDICATIONS: Congestion. CLINICAL DATA: This is the patient's subsequent encounter. Patient reports that signs and symptoms h ave been present for 3 days and indicates a pain score of Nonresponsive. MEDICAL/SURGICAL HISTORY: Hypertension. Parkinson's disease. Diabetes mellitus type II. AFib. H yperlipidemia. Esophageal dysphagia. Cholecystectomy. Right knee surgery. . COMPARISON: [facility] [place], CHEST 1V SINGLE AP, 09/10/2018. . FINDINGS: Lungs are hyperexpanded which accentuate interstitial markings. Progressive airspace disease in the r ight lower lung zone. Cardiomediastinal contours are within normal limits given technique and degree of expansion. Remainder of the exam is unchanged. CONCLUSION: 1. Low lung volumes with progressive right lower lung zone airspace disease which may reflect atelec tasis. Electronically signed by: Germán Murrieta MD 09/12/2018 8:04 AM EST
[2018-09-12 08:13] VITALS: TEMP 98.2; O2SAT 93
--- NOTE | 2018-09-12 09:01 | P.DS ---
Date of admission: 09/10/18 22:05 Primary care physician: Usman Albarran DO Brief History from admission: 78-year-old male with a history of hypertension, diabetes, A. fib on anticoagulation, hyperlipidemia, Parkinson's and esophageal dysphagia was brought to the ED from a rehab facility for evaluation for aspiration pneumonia. Apparently patient only eats via his PEG tube and a EX[employer] OPERATOR at the facility fed him a breakfast tray this morning and the facility was concerned for Aspiration. He was recently admitted for pneumonia in August. Patient is sleepy on examination, ROS is limited due to mentation. He has a lot of bronchial secretions and he doesn't seem to clear them at all. He denies any chest pain. Per the nurse he has not had any complaints. No fevers noted. DS: Summary - Time Spent with Patient Total time spent providing and/or coordinating discharge services: - Quality: VTE Deep Vein Thrombosis/Pulmonary Embolism Present on Admission: No Exam Vital signs: Vital Signs 09/11/18 12:15 09/11/18 12:24 09/11/18 16:45 Temperature 98.5 F Pulse Rate 83 79 79 Respiratory Rate 20 18 18 Blood Pressure 130/66 146/66 H Pulse Oximetry 91 L 95 09/11/18 16:56 09/11/18 19:36 09/11/18 20:00 Temperature 97.9 F Pulse Rate 84 82 107 H Respiratory Rate 20 18 19 Blood Pressure 141/70 H Pulse Oximetry 91 L 09/11/18 23:26 09/12/18 04:00 09/12/18 07:37 Temperature 97.4 F L 98.5 F Pulse Rate 81 94 H 91 H Respiratory Rate 21 18 18 Blood Pressure 141/75 H 153/71 H Pulse Oximetry 97 93 L 95 09/12/18 08:11 Temperature 98.2 F Pulse Rate 102 H Respiratory Rate 18 Blood Pressure 143/69 H Pulse Oximetry 93 L Intake & Output 09/11/18 09/12/18 09/12/18 18:59 06:59 18:59 Intake Total 553 / 553 1960 / 1960 Output Total 890 / 890 Balance 553 / 553 1070 / 1070 Weight 79 kg Intake: IV 200 / 200 1300 / 1300 NS Inj 1,000 ML @ 45 mls/hr IV. 1000 / 1000 CONT .[id number] [facility] Rx#:[id number] Unasyn Inj 3 GM In NS Inj 100 200 / 200 300 / 300 ML @ 200 mls/hr IV.SIG Q6H [facility] Rx#:[id number] Tube Feeding 353 / 353 660 / 660 Output: Urine 890 / 890 Other: # Voids 2 Results Labs on day of discharge: Labs from last 24 hours 09/12/18 09/11/18 09/11/18 06:24 20:03 18:16 WBC 9.1 RBC 3.41 L Hgb 10.7 L Hct 31.5 L MCV 92.2 MCH 31.4 MCHC 34.1 RDW 14.4 Plt Count 134 L MPV 9.1 Neut % (Auto) Lymph % (Auto) [place] % (Auto) Eos % (Auto) Baso % (Auto) Neut # (Auto) Lymph # (Auto) [place] # (Auto) Eos # (Auto) Baso # (Auto) WBC Differential Differential Comment Sodium Potassium Chloride Carbon Dioxide Anion Gap BUN Creatinine Estimated GFR POC Glucose 267 H 226 H Random Glucose Calcium Total Bilirubin AST ALT Alkaline Phosphatase Total Protein Albumin 09/11/18 09/11/18 09/11/18 11:45 09:28 09:05 WBC RBC Hgb Hct MCV MCH MCHC RDW Plt Count MPV Neut % (Auto) Lymph % (Auto) [place] % (Auto) Eos % (Auto) Baso % (Auto) Neut # (Auto) Lymph # (Auto) [place] # (Auto) Eos # (Auto) Baso # (Auto) WBC Differential Differential Comment Sodium 139 Potassium 4.0 Chloride 101 Carbon Dioxide 28.9 Anion Gap 9 BUN 24 H Creatinine 0.79 Estimated GFR Greater than 89 POC Glucose 118 H 102 Random Glucose 86 Calcium 8.8 Total Bilirubin 0.5 AST 21 ALT 21 Alkaline Phosphatase 78 Total Protein 8.0 Albumin 3.2 L 09/11/18 09:05 WBC 10.2 RBC 3.76 L Hgb 11.9 L Hct 34.7 L MCV 92.5 MCH 31.7 MCHC 34.3 RDW 14.3 Plt Count 140 L MPV 8.5 Neut % (Auto) 75.9 H Lymph % (Auto) 14.0 [place] % (Auto) 9.0 H Eos % (Auto) 0.7 Baso % (Auto) 0.4 Neut # (Auto) 7.7 Lymph # (Auto) 1.4 [place] # (Auto) 0.9 Eos # (Auto) 0.1 Baso # (Auto) 0.0 WBC Differential . Differential Comment Auto diff final Sodium Potassium Chloride Carbon Dioxide Anion Gap BUN Creatinine Estimated GFR POC Glucose Random Glucose Calcium Total Bilirubin AST ALT Alkaline Phosphatase Total Protein Albumin - Impressions ITS Impressions Venous Doppler Study 09/10/18 19:33 CONCLUSION: 1. No sonographic evidence for left lower extremity DVT. Chest X-Ray 09/12/18 00:00 CONCLUSION: 1. Low lung volumes with progressive right lower lung zone airspace disease which may reflect atelectasis. Discharge Plan - Discharge Disposition Patient Disposition: 03 Discharge to SNF - Discharge Condition Condition: Stable - Discharge Order Discharge Orders: Discharge Order (Routine); Ordered 09/12/18 Ordered By: Negin Hernandez - Physicians Team Primary Care Provider: Usman Albarran Attending Provider: Negin Hernandez Other Providers: [employer]
--- NOTE | 2018-09-12 09:44 | P.PNIM ---
Subjective Interval history: Patient continues to be lethargic, requiring 2L NC. Weak cough. His wishes to take him home. DW with daughter in law and family would like information from Hospice. Physical Exam Vital signs: Vital Signs 09/11/18 12:15 09/11/18 12:24 09/11/18 16:45 Temperature 98.5 F Pulse Rate 83 79 79 Respiratory Rate 20 18 18 Blood Pressure 130/66 146/66 H Pulse Oximetry 91 L 95 09/11/18 16:56 09/11/18 19:36 09/11/18 20:00 Temperature 97.9 F Pulse Rate 84 82 107 H Respiratory Rate 20 18 19 Blood Pressure 141/70 H Pulse Oximetry 91 L 09/11/18 23:26 09/12/18 04:00 09/12/18 07:37 Temperature 97.4 F L 98.5 F Pulse Rate 81 94 H 91 H Respiratory Rate 21 18 18 Blood Pressure 141/75 H 153/71 H Pulse Oximetry 97 93 L 95 09/12/18 08:11 Temperature 98.2 F Pulse Rate 102 H Respiratory Rate 18 Blood Pressure 143/69 H Pulse Oximetry 93 L Intake & Output 09/11/18 09/12/18 09/12/18 18:59 06:59 18:59 Intake Total 553 / 553 1960 / 1960 Output Total 890 / 890 Balance 553 / 553 1070 / 1070 Weight 79 kg Intake: IV 200 / 200 1300 / 1300 NS Inj 1,000 ML @ 45 mls/hr IV. 1000 / 1000 CONT .[id number] [facility] Rx#:[id number] Unasyn Inj 3 GM In NS Inj 100 200 / 200 300 / 300 ML @ 200 mls/hr IV.SIG Q6H [facility] Rx#:[id number] Tube Feeding 353 / 353 660 / 660 Output: Urine 890 / 890 Other: # Voids 2 Narrative: GENERAL: Elderly male in no acute distress. NECK: Supple, trachea midline. No JVD or lymphadenopathy. CARDIOVASCULAR: Regular rate and rhythm without murmurs, gallops, or rubs. RESPIRATORY: Weak wet cough. Upper airway transmitted rhonchi. Diminished breath sounds at the bases otherwise generally clear to auscultation. No wheezing. GASTROINTESTINAL: Abdomen soft, non-tender, nondistended. PEG in place MUSCULOSKELETAL: No cyanosis, or edema. Move all extremities Results - Labs CBC & Chem 7: 09/12/18 06:24 09/11/18 09:05 Laboratory Results - last 24 hr 09/11/18 09/11/18 09/11/18 09:05 09:28 11:45 WBC RBC Hgb Hct MCV MCH MCHC RDW Plt Count MPV Sodium 139 Potassium 4.0 Chloride 101 Carbon Dioxide 28.9 Anion Gap 9 BUN 24 H Creatinine 0.79 Estimated GFR Greater than 89 POC Glucose 102 118 H Random Glucose 86 Calcium 8.8 Total Bilirubin 0.5 AST 21 ALT 21 Alkaline Phosphatase 78 Total Protein 8.0 Albumin 3.2 L 09/11/18 09/11/18 09/12/18 18:16 20:03 06:24 WBC 9.1 RBC 3.41 L Hgb 10.7 L Hct 31.5 L MCV 92.2 MCH 31.4 MCHC 34.1 RDW 14.4 Plt Count 134 L MPV 9.1 Sodium Potassium Chloride Carbon Dioxide Anion Gap BUN Creatinine Estimated GFR POC Glucose 226 H 267 H Random Glucose Calcium Total Bilirubin AST ALT Alkaline Phosphatase Total Protein Albumin - Imaging Impressions Chest X-Ray 09/12/18 00:00 CONCLUSION: 1. Low lung volumes with progressive right lower lung zone airspace disease which may reflect atelectasis. Assessment and Plan - Plan 78-year-old male with a history of hypertension, diabetes, A. fib on anticoagulation, hyperlipidemia, Parkinson's and esophageal dysphagia was brought to the ED from a rehab facility for evaluation for aspiration pneumonia. Aspiration pneumonia Chest x-ray today shows progressive RLL disease. Patient is very weak and may have difficulty protecting his airway. -Duonebs scheduled -Continue treatment with Unasyn IV -Suction as needed -Chest PT. Hypertension, chronic -Continue home medications medications, monitor vitals Diabetes,Chronic -Accu checks -Cont home medications Afib, chronic -Monitor telemetry -cont home medications Severe Esophageal dysphagia, chronic -Tube feeds via PEG tube Parkinson disease. Has been worsening per family. He is not ambulatory an drequires assistance with all ADLs. DVT prophylaxis: On Eliquis Discharge Planning: Initial plan were to DC to SNF however his wish to take him home. Patient is at high risk for further decline in respiratory status. Family requested consultation with Hospice.
[2018-09-12] MEDS: amLODIPine 5 MG Tablet G-TUBE SCH (10:35)
[2018-09-12] MEDS: Metoprolol Tartrate 50 MG Tablet G-TUBE SCH (10:35)
[2018-09-12] MEDS: Famotidine 20 MG Tablet G-TUBE SCH (10:36)
[2018-09-12] MEDS: Sodium Chloride 0.9% 2 ML Flush BID IV.FLUSH SCH (10:36)
[2018-09-12] MEDS: Digoxin 125 MCG Tablet G-TUBE SCH (10:36)
[2018-09-12 11:23] VITALS: BP 152/82
[2018-09-12] MEDS: Insulin NovoLOG Aspart Correctional Sugar Inj SQ SCH ×3 (11:58→17:33)
[2018-09-12] MEDS: Insulin Detemir Inj 1,000 UNIT/10 ML Vial SQ SCH (11:58)
[2018-09-12 15:21] VITALS: PULSE 97; RESP 18
--- NOTE | 2018-09-12 15:30 | P.DS ---
Date of admission: 09/10/18 22:05 Primary care physician: Usman Albarran DO Brief History from admission: HPI as documented by the admitting provider: 78-year-old male with a history of hypertension, diabetes, A. fib on anticoagulation, hyperlipidemia, Parkinson's and esophageal dysphagia was brought to the ED from a rehab facility for evaluation for aspiration pneumonia. Apparently patient only eats via his PEG tube and a [employer] ADMINISTRATOR at the facility fed him a breakfast tray this morning and the facility was concerned for Aspiration. He was recently admitted for pneumonia in August. Patient is sleepy on examination, ROS is limited due to mentation. He has a lot of bronchial secretions and he doesn't seem to clear them at all. He denies any chest pain. Per the nurse he has not had any complaints. No fevers noted. DS: Medications - Discharge Medications Prescriptions: amoxicillin-pot clavulanate [Augmentin] 1 tab FEEDING TUBE Q12H 7 Days #14 tab DS: Summary Hospital Course: 78-year-old male with a history of hypertension, diabetes, A. fib on anticoagulation, hyperlipidemia, Parkinson's and esophageal dysphagia was brought to the ED from a rehab facility for evaluation for aspiration pneumonia. The patient was admitted and treated for aspiration pneumonia. Initial chest x-ray was unremarkable but the repeat chest x-ray did show progressive right lower lobe disease. The patient is very weak and unable to clear his secretions. He was deemed to be a high risk for worsening condition if he were to return home. His reports he has been declining. At this point the patient's and his family decided to transition him to comfort care only with hospice services. He is discharged to the hospice care center. Other conditions treated and include: Hypertension, chronic -Continue home medications medications Diabetes,Chronic -Accu checks -Cont home medications Afib, chronic -cont home medications Severe Esophageal dysphagia, chronic -Tube feeds via PEG tube Parkinson disease. Has been worsening per family. He is not ambulatory and requires assistance with all ADLs. Chronic neck/back pain: - Patient has been on Subutex, he was treated with Roxanol while inpatient. - Time Spent with Patient Total time spent providing and/or coordinating discharge services: Greater than 30 minutes - Quality: VTE Deep Vein Thrombosis/Pulmonary Embolism Present on Admission: No Exam Vital signs: Vital Signs 09/11/18 16:45 09/11/18 16:56 09/11/18 19:36 Temperature Pulse Rate 79 84 82 Respiratory Rate 18 20 18 Blood Pressure 146/66 H Pulse Oximetry 95 09/11/18 20:00 09/11/18 23:26 09/12/18 04:00 Temperature 97.9 F 97.4 F L 98.5 F Pulse Rate 107 H 81 94 H Respiratory Rate 19 21 18 Blood Pressure 141/70 H 141/75 H 153/71 H Pulse Oximetry 91 L 97 93 L 09/12/18 07:37 09/12/18 08:00 09/12/18 08:11 Temperature 98.2 F Pulse Rate 91 H 102 H Respiratory Rate 18 18 Blood Pressure 143/69 H Pulse Oximetry 95 95 93 L 09/12/18 08:45 09/12/18 11:20 09/12/18 12:27 Temperature Pulse Rate 114 H 89 Respiratory Rate 16 18 24 Blood Pressure 152/82 H Pulse Oximetry 93 L Intake & Output 09/11/18 09/12/18 09/12/18 18:59 06:59 18:59 Intake Total 553 / 553 1960 / 1960 100 / 100 Output Total 890 / 890 Balance 553 / 553 1070 / 1070 100 / 100 Weight 79 kg Intake: IV 200 / 200 1300 / 1300 100 / 100 NS Inj 1,000 ML @ 45 mls/hr IV. 1000 / 1000 CONT [id number] Rx#:[id number] Unasyn Inj 3 GM In NS Inj 100 200 / 200 300 / 300 100 / 100 ML @ 200 mls/hr IV.SIG Q6H [facility] Rx#:[id number] Tube Feeding 353 / 353 660 / 660 Output: Urine 890 / 890 Other: # Voids 2 Narrative: GENERAL: Elderly male. Lethargic. NECK: Supple, trachea midline. No JVD or lymphadenopathy. CARDIOVASCULAR: Regular rate and rhythm without murmurs, gallops, or rubs. RESPIRATORY: Weak wet cough. Upper airway transmitted rhonchi. Diminished breath sounds at the bases otherwise generally clear to auscultation. No wheezing. GASTROINTESTINAL: Abdomen soft, non-tender, nondistended. PEG in place MUSCULOSKELETAL: No cyanosis, or edema. Move all extremities NEURO: Lethargic. Results Procedures completed during hospitalization: None Labs on day of discharge: Labs from last 24 hours 1109/12/18 09/12/18 13:26 10:40 06:24 WBC 9.1 RBC 3.41 L Hgb 10.7 L Hct 31.5 L MCV 92.2 MCH 31.4 MCHC 34.1 RDW 14.4 Plt Count 134 L MPV 9.1 POC Glucose 193 H 245 H 09/11/18 09/11/18 20:03 18:16 WBC RBC Hgb Hct MCV MCH MCHC RDW Plt Count MPV POC Glucose 267 H 226 H - Impressions ITS Impressions Venous Doppler Study 09/10/18 19:33 CONCLUSION: 1. No sonographic evidence for left lower extremity DVT. Chest X-Ray 09/12/18 00:00 CONCLUSION: 1. Low lung volumes with progressive right lower lung zone airspace disease which may reflect atelectasis. Discharge Plan - Discharge Disposition Patient Disposition: [facility] Hospice[facility] Facility - Discharge Condition Condition: Stable - Discharge Order Discharge Orders: Discharge Order (Routine); Ordered 09/12/18 Ordered By: Negin Hernandez - Physicians Team Primary Care Provider: Usman Albarran Attending Provider: Negin Hernandez Other Providers: [employer]
== END 2018-09-12 18:43 | disposition hospice, inpatient (51) ==
LOC: NEDA 17:45 → NEPC 17:45 → NEDA 22:50 → NEPGCP 23:25
PROVIDERS: ADMIT Family Medicine; ATTEND Family Medicine
DX: Z90.49 Acquired absence of other specified parts of digestive tract; G30.9 Alzheimer's disease, unspecified; E11.9 Type 2 diabetes mellitus without complications; Z82.49 Family history of ischemic heart disease and other diseases of the circulatory system; Z93.1 Gastrostomy status; I10 Essential (primary) hypertension; F02.80 Dementia in other diseases classified elsewhere, unspecified severity, without behavioral disturbance, psychotic disturbance, mood disturbance, and anxiety; G20 Parkinson's disease; Z82.3 Family history of stroke; Z87.01 Personal history of pneumonia (recurrent); Z79.01 Long term (current) use of anticoagulants; E78.5 Hyperlipidemia, unspecified; Z80.8 Family history of malignant neoplasm of other organs or systems; F17.210 Nicotine dependence, cigarettes, uncomplicated; R09.02 Hypoxemia; I48.2 Chronic atrial fibrillation; J69.0 Pneumonitis due to inhalation of food and vomit; Z79.4 Long term (current) use of insulin; Z83.3 Family history of diabetes mellitus; R13.14 Dysphagia, pharyngoesophageal phase